=== PATIENT | female | born 1960 | race African-American/Black ===

== ENCOUNTER → 2017-03-23 | Outpatient (CLI) | payer OTHER ==
[~2017-03-23] MED LIST: ELIQUIS2.5 MG PO; ELIQUIS5 MG PO; NAPROXEN500 M1 PO; VITAMIN D2000 UNIT PO
--- NOTE | ~2017-03-23 | CR170 ---
[facility] A Service of [facility] RADIOLOGY TEXT RESULTS PATIENT: TIM SHEEHAN LOCATION: [facility] : 56 UNIT #: [id number] AGE: [address]: LAUREN OJEDA MD SEX: F ORDER DR: [id number] [facility] [address] [place], [place] [address] [id number] O MR#: [id number] Acc #: [id number] NAME: TIM SHEEHAN : 1960 SEX: F STUDY DATE/TIME: 03/23/2017 13:03 UNIT: [facility] ROOM: STUDY DESCRIPTION: CR Knee 2 Views Rt Attending Physician: Lauren Ojeda M.D. Referring Physician: Lauren Ojeda M.D. Ordering Physician: Lauren Ojeda M.D. Primary Care Physician: Lauren Ojeda M.D. MEDICAL IMAGING REPORT This report is preliminary unless electronic signature is present EXAM Right knee 03/23/2017 HISTORY 56-year-old female complaining of 5-year history of chronic bilateral knee pain. TECHNIQUE 2-view right knee series. FINDINGS No acute or chronic fracture deformity is demonstrated. Moderately severe degenerative arthropathy with medial and patellofemoral joint space narrowing. No visible joint effusion. IMPRESSION 1. No acute osseous abnormality. 2. Moderately severe degenerative arthropathy with medial and patellofemoral joint space narrowing. Dictated by... Ezra Parada M.D. THIS IS AN ELECTRONICALLY VERIFIED REPORT Ezra Parada M.D. at 03/24/2017 4:35 PM MARCEL/nedra TD: 03/23/2017 16:32 JOB #: [id number] MEDICAL IMAGING REPORT Page 1 of 1 COPY
--- NOTE | ~2017-03-23 | CR169 ---
[facility] A Service of [facility] RADIOLOGY TEXT RESULTS PATIENT: TIM SHEEHAN LOCATION: [facility] : 56 UNIT #: [id number] AGE: [address]: LAUREN OJEDA MD SEX: F ORDER DR: [id number] [facility] [address] [place], [place] [address] [id number] O MR#: [id number] Acc #: [id number] NAME: TIM SHEEHAN : 1960 SEX: F STUDY DATE/TIME: 03/23/2017 13:02 UNIT: [facility] ROOM: STUDY DESCRIPTION: CR Knee 2 Views Lt Attending Physician: Lauren Ojeda M.D. Referring Physician: Lauren Ojeda M.D. Ordering Physician: Lauren Ojeda M.D. Primary Care Physician: Lauren Ojeda M.D. MEDICAL IMAGING REPORT This report is preliminary unless electronic signature is present EXAM Left knee 03/23/2017 HISTORY 56-year-old female complaining of 5-year history of chronic bilateral knee pain. TECHNIQUE Two-view left knee series. FINDINGS No acute or chronic fracture deformity or additional osseous lesion. Moderate tricompartment degenerative arthropathy predominately involving the medial and patellofemoral compartments. No visible joint effusion. IMPRESSION 1. No acute osseous abnormality. 2. Moderately severe degenerative arthropathy involving the medial and patellofemoral joint spaces. Dictated by... Ezra Parada M.D. THIS IS AN ELECTRONICALLY VERIFIED REPORT Ezra Parada M.D. at 03/24/2017 4:35 PM RGW/braxton TD: 03/23/2017 16:21 JOB #: [id number] MEDICAL IMAGING REPORT Page 1 of 1 COPY
== END | disposition home or self-care (01) ==
LOC: CRAD 12:43
DX: M25.562 Pain in left knee (principal); M17.0 Bilateral primary osteoarthritis of knee
CPT/HCPCS: 73560